=== PATIENT | female | born 1990 ===

== ENCOUNTER 2020-04-25 10:04 | Outpatient (REF) | payer BC, SELFPAY ==
[2020-04-28 15:31] LABS: SARS-CoV-2 RNA Undetected (Undetected); SARS-CoV-2 Specimen Source Nasopharynx
== END 2020-04-25 10:24 ==
LOC: NCHCN 10:04
PROVIDERS: PCP Internal Medicine; Visit Provider Internal Medicine
DX: Z20.828 Contact with and (suspected) exposure to other viral communicable diseases (principal)
CPT/HCPCS: U0003